=== PATIENT | female | born 1990 | race American Indian/Alaskan Native ===

== ENCOUNTER 2019-11-11 11:29 | Day surgery (SDC) | payer OTHER ==
--- NOTE | 2019-11-02 09:42 | History and Physical Report ---
History of Present Illness Date of examination: 11/11/19 History of present illness: PT is a 29 yo (not 23 yo) with recurrent issues with right sided ovarian cysts and pelvic pain. This has occurred even with BC in the past. Recent U/S again showed a 6 cm cyst. PT has had 2 laparoscopies in the past for this, i ncluding one last year. As a result, pt will present on 11/10 for a Lap RSO. Past History Past Medical History: other (PCOS) Past Surgical History: other (lap ovarian cystectomy x 2) Social history: no significant social history Medications and Allergies Allergies Allergy/AdvReac Type Severity Reaction Status Date / Time butorphanol [From Stadol] Allergy Hives Verified 11/03/19 11:11 ketorolac [From Toradol] Allergy Hives Verified 11/03/19 11:11 Home Medications Medication Instructions Recorded Confirmed Last Taken Type Naproxen 375 mg PO DAILY 08/30/19 11/03/19 Unknown History metFORMIN [Glucophage] 500 mg PO Q48H 08/30/19 11/03/19 Unknown History traMADoL [Ultram] 50 mg PO DAILY 08/30/19 11/03/19 Unknown History Review of Systems All systems: negative (except HPI) - Physical Exam Cardiovascular: Regular rate Lungs: Positive: Clear to auscultation Abdomen: Positive: normal appearance, soft. Negative: tenderness Genitourinary (Female): Positive: other (deferred to OR) Results Result Diagrams: 11/11/19 12:35 11/11/19 12:35 All other labs normal. Assessment and Plan - Patient Problems (1) Ovarian cyst Current Visit: No Status: Acute Plan to address problem: Pt opts to proceed with Lap RSO (vs just cystectomy). Patient had an EKG today for recent chest pain and that was within normal limits. Anesthesia is okay to proceed with the surgery. Patient fully consented for the surgery. Risks, benefits, and alternatives were all discussed with the patient including risk of bleeding, infection, and potential for injury. Patient understands and accepts these risks. Patient agrees to proceed with surgery. All questions were answered. (2) Pelvic pain Current Visit: No Status: Acute
[~2019-11-11 11:29] MED LIST: ACETAMINOPHEN 500 MG TAB PO SCH; GABAPENTIN 300 MG CAP PO NR; LACTATED RINGERS 1,000 ML IV SCH; MAGNESIUM OXIDE 400 MG TAB PO SCH; MIDAZOLAM 2 MG/2 ML INJ IV NR
--- NOTE | 2019-11-11 12:10 | Anesthesia Consultation ---
Anesthesia Consult and Med Hx Date of service: 11/11/19 - Airway Anesthetic Teeth Evaluation: Good ROM Head & Neck: Adequate Mental/Hyoid Distance: Adequate Mallampati Class: Class I Intubation Access Assessment: Good - Pulmonary Exam CTA: Yes - Cardiac Exam Cardiac Exam: RRR - Pre-Operative Health Status ASA Pre-Surgery Classification: ASA2 Proposed Anesthetic Plan: General - Pulmonary Hx Smoking: Yes Hx Respiratory Symptoms: No - Cardiovascular System Hx Hypertension: No Hx Heart Attack/AMI: No Hx Percutaneous Transluminal Coronary Angioplasty (PTCA): No Hx Cardia Arrhythmia: No Hx Valvular Heart Disease: No Hx Heart Murmur: No - Central Nervous System CVA: No Hx Psychiatric Problems: Yes (anxiety) - Gastrointestinal Hx Gastroesophageal Reflux Disease: Yes (diet controlled) - Endocrine Hx Renal Disease: No Hx Liver Disease: No Hx Insulin Dependent Diabetes: No Hx Non-Insulin Dependent Diabetes: No Hx Thyroid Disease: No - Other Systems Hx Obesity: No - Additional Comments Anesthesia Medical History Comments: No hx anesthetic complications. Hx PCOS. Patient report hx of intermittent chest pain located in the left upper chest. Pain is difficult to characterize but onset occurs at random and resolved without intervention. No associated dyspnea, palpitations, dizziness, syncope, diaphoresis, palpitations. >4 mets exercise tolerance and is very physically active without limitations. She feels the pain may be associated with anxiety or muscle strain. Physical exam shows no signs of HF decompensation and VS are normal. Low suspcion for cardiac etiology at this time. Will obtain EKG prior to surgery.
--- NOTE | 2019-11-11 12:10 | Anesthesia Day of Surgery ---
Anesthesia Day of Surgery - Day of Surgery Patient Examined: Yes Patient H&P Reviewed: Yes Patient is NPO: Yes
[2019-11-11] MEDS ORDERED: LACTATED RINGERS 1,000 ML ONE ×2 (12:46→15:28)
[2019-11-11] MEDS ORDERED: BUPIVACAINE/PF (0.5%) 5 MG/1 ML 30 ML VIAL INFILTRATI ONE ×2 (12:55→14:30)
[2019-11-11 12:59] LABS: Hematocrit 38.3 % (30.3-42.9); Hemoglobin 12.7 gm/dl (10.1-14.3); Mean Corpuscular HGB Conc 33 % (30-34); Mean Corpuscular Volume 82 fl (79-97); Platelet Count 403 K/mm3 (140-440); Red Blood Count 4.66 M/mm3 (3.65-5.03)
[2019-11-11] MEDS ORDERED: fentaNYL 100 MCG/2 ML INJ IV ONE (13:00)
[2019-11-11] MEDS ORDERED: SCOPOLAMINE TRANSDERMAL PATCH 72 HR TD NR (13:00)
[2019-11-11 13:11] LABS: BUN/Creatinine Ratio 20; Blood Urea Nitrogen 16 mg/dL (7-17); Calcium 9.6 mg/dL (8.4-10.2); Hemolysis Index 5
[2019-11-11] MEDS ORDERED: HYDROmorphone 1 MG/1 ML INJ ONE (13:23)
[2019-11-11] MEDS ORDERED: propofoL 200 MG/20 ML VIAL IV ONE (13:23)
[2019-11-11] MEDS ORDERED: ROCURONIUM 50 MG/5 ML INJ IV ONE (13:23)
[2019-11-11] MEDS ORDERED: LIDOCAINE MPF (2%) 20 MG/1 ML VIAL 5 ML ONE (13:24)
[2019-11-11] MEDS ORDERED: KETAMINE/STERILE WATER 50 MG/ML SYRINGE ONE (13:52)
[2019-11-11] MEDS ORDERED: SODIUM CHLORIDE 0.9% IRR 1,500 ML BOTTLE IR ONE (14:30)
[2019-11-11] MEDS ORDERED: SODIUM CHLORIDE 0.9% IRRIG SOLN 2000 ML IR ONE (14:42)
[2019-11-11] MEDS ORDERED: NEOSTIGMINE 10MG/10 ML INJ MDV ONE (15:20)
[2019-11-11] MEDS ORDERED: ONDANSETRON 4 MG/2 ML INJ ONE (15:20)
[2019-11-11] MEDS ORDERED: GLYCOPYRROLATE 0.4 MG/2 ML INJ ONE (15:20)
--- NOTE | 2019-11-11 15:47 | Post Operative Note ---
Date of procedure: 11/11/19 Pre-op diagnosis: pelvic pain, right ovarian cyst Post-op diagnosis: other (plus small simple left ovarian cyst plus pelvic and abd adhesions) Findings: Patient had a normal uterus. Her right ovary was enlarged. There was also surrounded by adhesions especially on the dense one on the posterior side. Her left ovary had mild adhesions also on the posterior side. A small simple left ovarian cyst was also noted. Both tubes appeared normal. Patient also had some omental adhesions in the right lower quadrant to right mid area of the abdomen. The remainder of the abdominal survey was within normal limits. Procedure: Indication: Patient is a 29-year-old with recurrent chronic issues with pelvic pain and in particular right ovarian cysts. Patient has had 2 laparoscopies in the past for this. As result patient is here for the procedure below. The procedure was laparoscopic right salpingo-oophorectomy, left ovarian cystotomy, lysis of adhesions. Procedure: Patient taken the operating room and prepped and draped in usual fashion. Attention was first turned vaginally where single-tooth tenaculum was applied to the anterior lip of the cervix and the acorn uterine manipulator was placed. Attention was now turned abdominally. A 5 mm umbilical incision was made. Abdomen tented up and the veres needle was placed successfully in the abdominal cavity. Abdomen insufflated with CO2 gas. Needle removed and the 5 mm trocar was placed. Placement confirmed with the camera. At this point attention was turned to the right lower quadrant were about 2 fingerbreadths superior and medial to the ASIS a 5 mm incision was made. 5 mm trocar was placed under direct visualization without difficulty. 12 mm incision was made suprapubically in the midline and that 12 mm trocar was also placed under direct visualization without difficulty. The abdominal pelvic survey was done and the findings are noted above. Attention was first turned to the right tube and ovary. The surrounding adhesions were lysed. Then the infundibulopelvic ligament on the right side was clamped cauterized and cut using the 5 mm LigaSure. Dissection all the way around the ovary was done using the LigaSure including ligation of the ovarian ligament. The ovary and the tube were able to be successfully dissected out and excised from all attachments and adhesions. Attention was turned to the left ovary where a small cystotomy was made using the EndoShears to drain the small simple cyst. Good hemostasis noted. The left ovarian adhesions were lysed at this point followed by the above-noted right lower quadrant abdominal omental adhesions. At this point no further adhesions were noted. No other significant findings were noted and good hemostasis was noted. At this point the Endobag was placed through the 12 mm port and the right tube and ovary were removed and that bag. After it was removed the 12 mm trocar was placed back in. Abdomen was desufflated and good hemostasis was still noted. Abdomen reinsufflated. Surgicel placed over the right adnexal areas where dissection was done as well as over the left ovarian cystotomy site. The 12 mm trocar was removed and that site was closed using the Uziel Sheffield device and 0 Vicryl. At this point the abdomen was fully desufflated. Trocar sites were all closed with 4-0 Vicryl in a subcuticular fashion. Local Marcaine was applied. The uterine manipulator and single-tooth tenaculum were removed. The procedure was concluded at this point. Patient tolerated the procedure well. All instrument lap counts were correct. Patient taken to the recovery in stable condition. Anesthesia: GETA Surgeon: FRANKI MOISE Estimated blood loss: minimal Pathology: list (RSO) Specimen disposition: to lab Condition: stable Disposition: PACU
[2019-11-11] MEDS: HYDROmorphone 1 MG/1 ML INJ IV PRN ×2 (16:32→16:40)
[2019-11-11] MEDS ORDERED: oxyCODONE /ACETAMINOPHEN 5-325MG TAB PO PRN (16:34)
[2019-11-11] MEDS ORDERED: ONDANSETRON 4 MG/2 ML INJ IV PRN (17:01)
--- NOTE | 2019-11-11 17:46 | Post Anesthesia Evaluation ---
- Post Anesthesia Evaluation Patient Participated: Yes Airway Patent: Yes Stable Respiratory Function: Yes Nausea/Vomiting: No Temp > 96.8F: Yes Pain Manageable: Yes Adequeate Hydration: Yes Anesthesia Complications: No
[2019-11-11] MEDS ORDERED: SIMETHICONE 80 MG CHEW TAB PO PRN (18:07)
[2019-11-11 18:18] VITALS: BP 121/78
--- NOTE | 2019-11-11 19:25 | Short Stay Summary ---
Short Stay Documentation Date of service: 11/11/19 Narrative H&P: Pt had a lap RSO, left ovarian cystotomy and JOHNIE for long standing pelvic pain and issues with ovarian cysts. See H&P and OP reports for details. Surgery was uncomplicated. RTO 2 weeks post op. - History H&P: dictated - Allergies and Medications Current Medications: Allergies butorphanol [From Stadol] Allergy (Verified 11/03/19 11:11) Hives ketorolac [From Toradol] Allergy (Verified 11/03/19 11:11) Hives Home Medications Medication Instructions Recorded Confirmed Last Taken Type Naproxen 375 mg PO DAILY 08/30/19 11/03/19 11/09/19 History metFORMIN [Glucophage] 500 mg PO Q48H 08/30/19 11/03/19 11/09/19 History traMADoL [Ultram] 50 mg PO DAILY 08/30/19 11/03/19 11/09/19 History Ibuprofen [Motrin 800 MG tab] 800 mg PO Q8HR PRN #30 tablet 11/11/19 Unknown Rx oxyCODONE /ACETAMINOPHEN [Percocet 1 tab PO Q4HR PRN #30 tab 11/11/19 Unknown Rx 5/325] - Disposition Condition at discharge: Stable Disposition: [id number]-01 TO HOME OR SELFCARE - Discharge Diagnoses (1) Ovarian cyst Status: Acute (2) Pelvic pain Status: Acute Short Stay Discharge Plan Additional Instructions: APPOINTMENT - DR MOISE WANTS A 14 DAY F/U DO CALL HIS OFFICE FOR APPT AND FOR ANY QUESTIONS OR [id number] RELATED TO THE PROCEDURE. ACTIVITY - NO RESTRICTIONS- ADVANCE TOLERATED. RESUME REGULAR DIET PRESCRIPTIONS GIVEN FOR PAIN TAKE DIRECTED. YOU WERE MEDICATED WITH 1 PERCOCET TAB ORALLY AT 5PM YOU MAY REPEAT PERCOCET AFTER 4 HOUR YOU SHOULD TAKE A MOTRIN AT ABOUT 6PM. DO TAKE THESE MEDICATIONS WITH FOOD. DO REMOVE THE SCOPE PATCH FROM BEHIND RT EAR AFTER 3 DAY DO WASH HANDS WELL WITH SOAP AND WATER AFTER REMOVAL . Follow up with: FRANKI MOISE MD [Primary Care Provider] - 14 Days Forms: Outpatient Surgery DC Inst. Prescriptions: Ibuprofen [Motrin 800 MG tab] 800 mg PO Q8HR PRN #30 tablet PRN Reason: Pain , Severe (7-10) oxyCODONE /ACETAMINOPHEN [Percocet 5/325] 1 tab PO Q4HR PRN #30 tab PRN Reason: Pain , Severe (7-10)
== END 2019-11-11 19:00 | disposition home or self-care (01) ==
LOC: OR 11:29 → EDBD 11:29 → OR 19:00
PROVIDERS: ATTEND Obstetrics & Gynecology
DX: R10.2 Pelvic and perineal pain (principal); N83.201 Unspecified ovarian cyst, right side; N83.202 Unspecified ovarian cyst, left side; K62.2 Anal prolapse; K66.0 Peritoneal adhesions (postprocedural) (postinfection); F17.210 Nicotine dependence, cigarettes, uncomplicated; G43.909 Migraine, unspecified, not intractable, without status migrainosus; K21.9 Gastro-esophageal reflux disease without esophagitis; F41.9 Anxiety disorder, unspecified; Z98.890 Other specified postprocedural states; Z79.84 Long term (current) use of oral hypoglycemic drugs; Z79.899 Other long term (current) drug therapy; Z88.8 Allergy status to other drugs, medicaments and biological substances
CPT/HCPCS: 36415; 58661; 58679; 80048; 81025; 85027; 88305; 93005; A4217; J1170; J2250; J2405; J2704; J2710; J3010; J3490; J7120